=== PATIENT | male | born 1965 | race Caucasian/White ===

== ENCOUNTER → 2017-07-13 | Outpatient (CLI) | payer BC ==
[2017-07-13 14:53] LABS: ALBUMIN 3.8 gm/dl (3.4-5.0); ALT/SGPT 59 U/L (12-78); AST/SGOT 38 U/L (15-37); BLOOD UREA NITROGEN 20 mg/dl (7-18); CALCIUM 9.1 mg/dl (8.5-10.1); CARBON DIOXIDE 26 mmol/L (21-32); CREATININE 1.04 mg/dl (0.60-1.40); GLUCOSE 111 mg/dl (70-99); POTASSIUM 3.9 mmol/L (3.5-5.1); SODIUM 138 mmol/L (136-145)
[2017-07-13 15:05] LABS: ALKALINE PHOSPHATASE 74 U/L (45-117); CHOLESTEROL 186 mg/dl (0-200); LDL CHOLESTEROL CALCULATED 79 mg/dl; TOTAL PROTEIN 7.2 gm/dl (6.4-8.2)
[2017-07-14 06:45] LABS: HEMOGLOBIN A1C 8.7 % (4.5-5.6)
== END | disposition home or self-care (01) ==
LOC: C.LAB1850 12:44
PROVIDERS: ATTEND Physician Assistant
DX: E11.9 Type 2 diabetes mellitus without complications (principal)